=== PATIENT | male | born 1945 | race Caucasian/White ===

== ENCOUNTER → 2016-09-10 | Outpatient (REF) ==
[~2016-09-10] MED LIST: ASPIRIN 81M81 MG/TA2 PO; CELEBREX 200MG200 MG PO; CIALIS5 MG PO; DEPO-TESTOS200 MG/M1 IM; EFFEXOR-XR150 MG PO; FLOMAX 0.40.4 MG/CAP PO; MIRAPEX0.5 MG PO; NORCO 325 MG-101 TAB PO; PRILOSEC 20MG20 MG PO
[2016-09-10 14:19] LABS: PSA-TOTAL 1.81 ng/mL (0-4)
[2016-09-10 14:29] LABS: THYROID STIMULATING HORMONE 2.66 uIU/mL (0.465-4.680)
== END ==
LOC: ZLAB.WCH 10:16
PROVIDERS: Medical Genetics Clinical Genetics (M.D.)
DX: Z01.89 Encounter for other specified special examinations (principal)
CPT/HCPCS: G0103

== ENCOUNTER → 2016-12-22 | Outpatient (REF) | LOC: ZLAB.WCH 19:27 | DX: Z01.89 Encounter for other specified special examinations (principal) ==

== ENCOUNTER → 2018-03-17 | Outpatient (REF) | LOC: ZLAB.WCH 14:15 | DX: Z12.31 Encounter for screening mammogram for malignant neoplasm of breast (principal) ==

== ENCOUNTER → 2018-07-12 | Outpatient (REF) ==
[2018-07-12 17:28] LABS: THYROID STIMULATING HORMONE 3.57 uIU/mL (0.465-4.680)
[2018-07-12 17:37] LABS: PSA-TOTAL 2.17 ng/mL (0-4)
== END ==
LOC: ZLAB.WCH 16:05
PROVIDERS: Internal Medicine
DX: Z01.89 Encounter for other specified special examinations (principal)
CPT/HCPCS: G0103

== ENCOUNTER → 2018-10-03 | Outpatient (REF) | LOC: ZLAB.WCH 09:43 | DX: Z01.89 Encounter for other specified special examinations (principal) ==

== ENCOUNTER → 2018-10-12 | Outpatient (REF) | LOC: ZLAB.WCH 16:17 | DX: Z01.89 Encounter for other specified special examinations (principal) ==

== ENCOUNTER → 2018-10-14 | Outpatient (CLI) | payer MEDICARE, BC | LOC: COL.RAD 13:14 | DX: J90 Pleural effusion, not elsewhere classified (principal); J94.2 Hemothorax ==

== ENCOUNTER 2018-10-21 12:37 | Inpatient (IN) | payer MEDICARE, BC ==
[~2018-10-21] VITALS: Ht 188 cm; Wt 115.9 kg
[~2018-10-21 12:37] MED LIST changes: -00186-0370-20 IH; -LUMIGAN 5 ML5 M1 OP
[2018-10-21 14:12] LABS: ALBUMIN 3.6 gm/dL (3.5-5.0); BILIRUBIN,TOTAL 0.7 mg/dL (0.0-1.0); CALCIUM 8.6 mg/dL (8.4-10.2); CREATININE, serum 0.79 mg/dL (0.66-1.25); POTASSIUM 4.3 mmol/L (3.4-5.0); TOTAL PROTEIN 6.8 gm/dL (6.4-8.2)
[2018-10-21 14:16] LABS: COLLECTION METHOD CLEAN CATCH
[2018-10-21 14:24] LABS: MUCOUS Present /lpf; PH 6 (5-8); SQUAMOUS EPITHELIAL None Seen /hpf; URINE APPEARANCE Clear; URINE BACTERIA None Seen /hpf; URINE BILIRUBIN Negative (NEGATIVE); URINE BLOOD Negative (NEGATIVE); URINE COLOR Yellow; URINE GLUCOSE Negative (NEGATIVE); URINE KETONE Negative (NEGATIVE); URINE LEUKOCYTE ESTERASE Negative (NEGATIVE); URINE NITRATE Negative (NEGATIVE); URINE PROTEIN(semi-quant) Negative (NEGATIVE); URINE RBC None Seen /hpf
[2018-10-21] MEDS ORDERED: 00186-0370-20 IH (14:50)
[2018-10-21] MEDS ORDERED: LUMIGAN 5 ML5 M1 OP (14:51)
[2018-10-21 14:53] LABS: BASO % 0.5 % (0.0-2.0); EOS # 0.6 (0.0-0.7); EOS % 10.6 % (0-4.0); GRAN # 3.9 (1.4-6.5); GRAN % 69.5 % (42.2-75.2); HEMATOCRIT 41.4 % (42.0-52.0); HEMOGLOBIN 13.8 g/dl (13.5-18.0); LYMPH # 0.5 (1.2-3.4); LYMPH % 9.7 % (20.0-51.0); MEAN CELL VOLUME 93 fl (80.0-100.0); MEAN CORPUSCULAR HEMOGLOBIN 31 pg (27.0-31.0); MEAN CORPUSCULAR HGB CONC 33 g/dl (33.0-37.0); MEAN PLATELET VOLUME 8.6 fl (7.4-10.4); MONO # 0.5 (0.1-0.6); MONO % 9.2 % (1.7-9.3); PLATELET COUNT 227 K/mm3 (130-400); RED BLOOD COUNT 4.45 M/mm3 (4.20-5.60); REDCELL DISTRIBUTION WIDTH-CV 13.4 % (11.5-14.5)
--- NOTE | 2018-10-21 16:06 | NUR ---
Patient up to room 341 from ER by anni. Alert and oriented x 3. Patient oriented to room. IV fluids infusing via pump to left hand. Denies further needs at this time.
[2018-10-21 19:21] VITALS: BP 128/87; PULSE 104; TEMP 99.8
[2018-10-21 19:23] VITALS: BP 128/87; PULSE 104; TEMP 99.8
--- NOTE | 2018-10-21 19:38 | NUR ---
Reported off to night coordinator.
--- NOTE | 2018-10-21 20:20 | NUR ---
Shift assessment complete. Patient in bed, at bedside. Patient c/o pain only when coughing, declines pain medication. SCD's applied. Patient's brought in home CPAP, RT notified. Will continue to assess.
[2018-10-22] VITALS (148 sets, daily range): BP systolic 112–140; BP diastolic 60–90; PULSE 72–105; TEMP 97.5–98.9; O2SAT 84–98
--- NOTE | 2018-10-22 04:01 | NUR ---
Patient in bed, awake. Per RT, CPAP was off while patient was sleeping, resulting in 90% on RA. Patient stated he would put his CPAP back on. Will continue to monitor oxygen level. Consent for chest tube signed and on chart. Patient denies pain. Will continue to monitor.
--- NOTE | 2018-10-22 06:23 | NUR ---
Patient in bed, awake. O2 90%RA, placed on 2L. 93% on 2L. Denies pain. Will continue to monitor.
[2018-10-22 07:14] LABS: HEMATOCRIT 40.4 % (42.0-52.0); HEMOGLOBIN 13.2 g/dl (13.5-18.0); MEAN CELL VOLUME 94 fl (80.0-100.0); MEAN CORPUSCULAR HEMOGLOBIN 31 pg (27.0-31.0); MEAN CORPUSCULAR HGB CONC 33 g/dl (33.0-37.0); MEAN PLATELET VOLUME 8.3 fl (7.4-10.4); PLATELET COUNT 239 K/mm3 (130-400); RED BLOOD COUNT 4.29 M/mm3 (4.20-5.60); REDCELL DISTRIBUTION WIDTH-CV 13.4 % (11.5-14.5)
[2018-10-22 07:25] LABS: CALCIUM 8.4 mg/dL (8.4-10.2); CREATININE, serum 0.68 mg/dL (0.66-1.25); MAGNESIUM 2.2 mg/dL (1.6-2.3); POTASSIUM 4.2 mmol/L (3.4-5.0)
[2018-10-22 07:52] LABS: BAND 51 % (0-10); LYMPHOCYTE 2 % (20.0-51.0); NEUTROPHILS 45 % (42.0-75.2)
[2018-10-22 07:53] LABS: PLATELET ESTIMATE NORMAL (NORMAL)
--- NOTE | 2018-10-22 08:00 | NUR ---
Patient in bed resting. Alert and oriented x 3. Shift assesment complete. Airborn precautions followed. Denies pain at this time. On 3L O2 via NC. SCDs to BLE. Denies further needs at this time.
[2018-10-22 08:10] LABS: INR 1.1 (0.8-3.0); PROTHROMBIN TIME 12.2 SECONDS (9.7-12.8)
--- NOTE | 2018-10-22 11:03 | NUR ---
Patient down to OR by bed with Pk.
--- NOTE | 2018-10-22 13:23 | NUR ---
SW attempted to meet with patient but he was not in his room.
--- NOTE | 2018-10-22 15:16 | NUR ---
Report called to Marina in ICU
--- NOTE | 2018-10-22 15:30 | NUR ---
PATIENT ARRIVED TO ICU ROOM 3 VIA BED FROM PACU. HE IS AWAKE AND ALERT AT THIS TIME. HE WAS MOVED JULIA TO THE BED. 2 CHEST TUBES NOTED TO LEFT CHEST. HE WAS PLACED ON THE AUDITING CONTROL CLERK AND O2 SATS FOUND TO BE AROUND 85% ON 10L MASK. HE WAS PLACED ON AN OXYMASK AT 15L AND O2 SATS REMAINED LOW. DR. ASH NOTIFIED AND HE REQUESTED PATIENT BE PLACED ON BIPAP. CHEST TUBE ATRIUM WAS CHANGED DUE TO IT BEING KNOCKED OVER ON TRANSPORT.
[2018-10-22 16:59] LABS: ARTERIAL BLD GAS O2 SATURATION 98.1 % (92-100); ARTERIAL BLOOD GAS BASE EXCESS -1.9 (-2-2); ARTERIAL BLOOD GAS HCO3 23.6 meq/L (22-26); ARTERIAL BLOOD GAS PCO2 43.1 mmHg (35-45); ARTERIAL BLOOD GAS PO2 130.1 mmHg (80-100); ARTERIAL BLOOD GAS pH 7.36 (7.35-7.45)
--- NOTE | 2018-10-22 18:06 | NUR ---
PATIENT TAKEN OFF BIPAP AND PLACED ON 10 L OXYMASK
--- NOTE | 2018-10-22 19:20 | NUR ---
Bedside report received from ALLEN Gray. Chest Tube site assessed. Transfer of care at this time.
--- NOTE | 2018-10-22 19:34 | NUR ---
REPORT GIVEN TO ALLEN GONZALEZ.
--- NOTE | 2018-10-22 20:00 | NUR ---
Assessment complete at this time. Patient is resting in bed. Rates pain as 1/10 after getting dilauded. Assessment reveals coarse crackles in the left lung with diminished bases bilaterally. Chest tubes have thin red fluid draining. Dressing remains clean and dry. Patient placed on Bipap. No further needs. Will continue to monitor. Call light within reach.
[2018-10-23] VITALS (82 sets, daily range): BP systolic 110–126; BP diastolic 74–79; PULSE 70–86; TEMP 97.5–98.4; O2SAT 87–97
--- NOTE | 2018-10-23 | NUR ---
Assessment complete. Patient sleeping in bed, but easily awakens. Rates pain 1/10 again after receiving dilauded. Assessment reveals improvement in the left lung with fine crackles and diminished base. Right lung is clear with diminished base. Chest tubes remain patent and dressing is clean and dry. Patient has no further needs at this time. Will continue to monitor. Call light within reach.
--- NOTE | 2018-10-23 04:00 | NUR ---
Assessment complete at this time. Patient is resting in bed quietly listening to his audiobook. Patient has complained of pain rated 4/10 in his left side where the chest tubes are. Medication was provided. Assessment reveals coarse sounds in the left lung with the right clear. Vitals remain stable. No current needs. Will continue to monitor. Call light within reach.
[2018-10-23 05:45] LABS: HEMOGLOBIN 11.5 g/dl (13.5-18.0); MEAN CELL VOLUME 96 fl (80.0-100.0); MEAN CORPUSCULAR HEMOGLOBIN 31 pg (27.0-31.0); MEAN CORPUSCULAR HGB CONC 32 g/dl (33.0-37.0); MEAN PLATELET VOLUME 8.1 fl (7.4-10.4); PLATELET COUNT 230 K/mm3 (130-400); RED BLOOD COUNT 3.72 M/mm3 (4.20-5.60); REDCELL DISTRIBUTION WIDTH-CV 13.4 % (11.5-14.5)
[2018-10-23 05:51] LABS: HEMATOCRIT 35.7 % (42.0-52.0)
[2018-10-23 06:01] LABS: CALCIUM 7.8 mg/dL (8.4-10.2); CREATININE, serum 0.69 mg/dL (0.66-1.25); POTASSIUM 4.5 mmol/L (3.4-5.0)
[2018-10-23 06:19] LABS: C-REACTIVE PROTEIN 5.3 mg/dL (0.0-0.9)
[2018-10-23 06:23] LABS: ARTERIAL BLD GAS O2 SATURATION 97.1 % (92-100); ARTERIAL BLOOD GAS BASE EXCESS -0.5 (-2-2); ARTERIAL BLOOD GAS HCO3 24.9 meq/L (22-26); ARTERIAL BLOOD GAS PCO2 43.7 mmHg (35-45); ARTERIAL BLOOD GAS PO2 103.8 mmHg (80-100); ARTERIAL BLOOD GAS pH 7.37 (7.35-7.45)
--- NOTE | 2018-10-23 07:10 | NUR ---
Bedside report given to ALLEN Gray
--- NOTE | 2018-10-23 08:00 | NUR ---
INITIAL ASSESSMENT COMPLETED. PATIENT CURRENTLY ON BIPAP. TOLERATING WELL. HE STATES HIS PAIN IS STARTING TO INCREASE.
--- NOTE | 2018-10-23 10:24 | NUR ---
Patient was indisposed with a nurse.
--- NOTE | 2018-10-23 12:00 | NUR ---
PATIENT WAS ABLE TO GET UP TO A RECLINER. TOLERATED WELL. STATED HE HAD VERY MINIMAL PAIN AND IT FELT REALLY GOOD TO GET UP OUT OF THE BED. CHEST TUBE TO 20 CM OF SUCTION.
--- NOTE | 2018-10-23 15:20 | NUR ---
PATIENT ASSISTED WITH GETTING BACK TO BED. BIPAP PLACED AND PATIENT IS WANTING TO REST.
--- NOTE | 2018-10-23 19:18 | NUR ---
Bedside report received from ALLEN Gray. Chest Tube assessed. Transfer of care at this time.
--- NOTE | 2018-10-23 20:00 | NUR ---
Assessment complete. Patient is sitting up in bed awake watching tv. Patient rates pain a 1/10 in the left side that hurts when he coughs, but otherwise has no pain. Does not want any pain medications right now. Assessment reveals fine crackles and inspiratory wheezing in the left lung, right lung is clear. Chest tubes dressings remain clean and dry. Output from chest tubes has decreased but is still red in color. Patient has no other needs at this time. Will continue to monitor. Call light within reach.
[2018-10-24] VITALS (399 sets, daily range): BP systolic 108–132; BP diastolic 56–79; PULSE 59–85; TEMP 97.7–98.3; O2SAT 84–99
--- NOTE | 2018-10-24 | NUR ---
Assessment complete. Patient is sleeping at this time, but awakens easily to name. Patient is on BIPAP and is tolerating well. Patient rates his pain a 2/10 in the same area, still does not request any pain meds. Assessment reveals that wheezes have ceased and fine crackles remain in the left lung. Patient still has hypoactive bowel sounds and has not passed any gas. Patient has no further needs at this time. Will continue to monitor. Call light within reach.
--- NOTE | 2018-10-24 04:00 | NUR ---
Patient awake and playing on his tablet at this time. Assessment complete. Patient is now passing gas and has very active bowel sounds. Chest tubes remain patent and have red/bloody drainage. Patient rates pain as a 1/10 in the left side. He has no other needs now, will continue to monitor. Call light within reach.
--- NOTE | 2018-10-24 07:14 | NUR ---
Bedside report given to ALLEN Gray
[2018-10-24 07:22] LABS: BASO % 0.4 % (0.0-2.0); EOS # 0.4 (0.0-0.7); EOS % 4.5 % (0-4.0); GRAN # 6.1 (1.4-6.5); GRAN % 78.6 % (42.2-75.2); HEMOGLOBIN 10.4 g/dl (13.5-18.0); LYMPH # 0.8 (1.2-3.4); MEAN CELL VOLUME 97 fl (80.0-100.0); MEAN CORPUSCULAR HEMOGLOBIN 31 pg (27.0-31.0); MEAN CORPUSCULAR HGB CONC 32 g/dl (33.0-37.0); MEAN PLATELET VOLUME 8.2 fl (7.4-10.4); MONO # 0.5 (0.1-0.6); PLATELET COUNT 196 K/mm3 (130-400); RED BLOOD COUNT 3.35 M/mm3 (4.20-5.60); REDCELL DISTRIBUTION WIDTH-CV 13.6 % (11.5-14.5)
[2018-10-24 07:49] LABS: HEMATOCRIT 32.4 % (42.0-52.0)
[2018-10-24 07:53] LABS: BILIRUBIN,TOTAL 0.3 mg/dL (0.0-1.0); CALCIUM 7.9 mg/dL (8.4-10.2); CREATININE, serum 0.73 mg/dL (0.66-1.25); MAGNESIUM 2.6 mg/dL (1.6-2.3); PHOSPHOROUS 2.6 mg/dL (2.5-4.5); POTASSIUM 3.7 mmol/L (3.4-5.0); TOTAL PROTEIN 5.7 gm/dL (6.4-8.2)
--- NOTE | 2018-10-24 09:00 | NUR ---
PATIENT AMBULATED TO THE TOILET AND HAD A BOWEL MOVEMENT. CHEST TUBE DRESSING SOILED AND DRIPPING BLOOD ON THE FLOOR. DRESSING WAS CHANGED. PATIENT SITTING IN RECLINER AT THIS TIME. AT BEDSIDE. DENIES FURTHER NEEDS AT THIS TIME.
--- NOTE | 2018-10-24 09:00 | NUR ---
Chest tube placed to waterseal per Dr. Stinson orders.
--- NOTE | 2018-10-24 11:15 | NUR ---
Report called to ALLEN Michael on surgical. Patient will be taken by wheelchair to room 341. Plan of care discussed and all questions answered.
--- NOTE | 2018-10-24 12:19 | NUR ---
Pt arrived to surgical floor via wheelchair. just left. Pt to chair, brought lunch. Foam Chest tube dressing intact, water seal to 20mmHG, beginning of shift level marked by previous nurse. Pt to hi-flow O2 at 5L, See vitals.
--- NOTE | 2018-10-24 17:44 | NUR ---
Pt to chair in room
--- NOTE | 2018-10-24 19:08 | NUR ---
Chest tube dressing saturated, changed with xeroform and gauze and foam tape. Pt héctor well. Bedside report to ALLEN Mccormick. Pt settled into bed, water seal marked at 430 ml and dated.
--- NOTE | 2018-10-24 20:00 | NUR ---
PT RESTING IN BED. VERY PLEASANT AND COOPERATIVE. NO RESP DISTRESS. O2 41/2L NC. X2 LT CHEST TUBES TO WATER SEAL. SMALL AMTS OF RED DRAINAGE. CHEST TUBES SITE DAVID C&D. SEE MAR FOR ANY PAIN MEDS GIVEN. CONTINUED ISOLATION UNTIL TB TEST RESULTS. CALL LIGHT IN REACH. INDEPENDENT IN ROOM.
--- NOTE | 2018-10-24 22:30 | NUR ---
NOTIFIED RANDELL Brooks THAT THERE WAS ONLY ONE CHEST TUBE CLAMP AND CHECKLIST QUE REQUIRES TWO. SHE WILL FIND ANOTHER CLAMP TO BRING.
--- NOTE | 2018-10-25 02:53 | NUR ---
PT RESTING QUIETLY. NO RESP DISTRESS.
[2018-10-25 04:29] VITALS: BP 119/64; PULSE 71; TEMP 96.3
[2018-10-25 07:23] VITALS: BP 130/78; PULSE 78; TEMP 97
[2018-10-25 11:21] VITALS: BP 144/88; PULSE 80; TEMP 97.8
--- NOTE | 2018-10-25 14:30 | NUR ---
MD Shantell removed anterior chest tube. Remaining inserted tube redressed with petroleum gauze, gauze and tape. Chest tube connection taped with quick-release method.
--- NOTE | 2018-10-25 15:52 | NUR ---
SW met with patient to discuss discharge planning. Patient lives independently with his Shelby in [place]. Patients PCP is Dr Peter and he obtains his medications from [facility]. Patient reports he has a dpoa but not with him and he will have his bring it with him. PT has signed off on patient and OT is recommending home. SW does not anticipate any discharge needs but will continue to follow.
[2018-10-25 16:32] VITALS: BP 141/81; PULSE 79; TEMP 97.5
[2018-10-25 20:22] VITALS: BP 142/88; PULSE 77; TEMP 97.7
--- NOTE | 2018-10-25 21:00 | NUR ---
Patient rests in bed awake and alert. Watches TV. Denies pain. Chest tube left flank intact to waterseal. Has o2 on 3lpnc. Denies shortness of breath. Couphed up moderate amount dk red sputum. HS meds reviewed and given. Chest tube anterior dressing with moderate amount red drainage shawdowing/will monitor. SCD's applied at HS.
--- NOTE | 2018-10-25 22:30 | NUR ---
Notified RT that patient ready for Bipap to be applied. Patient drowsy. Denies further needs.
[2018-10-26] VITALS (7 sets, daily range): BP systolic 102–148; BP diastolic 63–82; PULSE 65–90; TEMP 97.1–98.3
--- NOTE | 2018-10-26 04:42 | NUR ---
Patient resting in bed with bipap on.
--- NOTE | 2018-10-26 06:00 | NUR ---
Patient reports he accidently knocked over waterseal chest tube canister. recycling crew supervisor Kristopher VILLA brought up new canister and filled to 2cm in B chamber and 20cm in A chamber. Reviewed changeing of canister with patient. Patient calm. Denies shortness of breath. States yesterday prior to this nurses arrival he had couphed hard and created some drainage under dressing. States ER nurse came up and "fixed it". Scant amount of light red drainage noted underneath sponge tape just under end of chest tube. Cleansed off. Kristopher VILLA and this nurse clamped end of chest tube and applied new waterseal canister/then unclamped. Secured where tubes meet with tape. Will monitor.
[2018-10-26 07:05] LABS: HEMATOCRIT 35.8 % (42.0-52.0); HEMOGLOBIN 11.5 g/dl (13.5-18.0); MEAN CELL VOLUME 96 fl (80.0-100.0); MEAN CORPUSCULAR HEMOGLOBIN 31 pg (27.0-31.0); MEAN CORPUSCULAR HGB CONC 32 g/dl (33.0-37.0); MEAN PLATELET VOLUME 8.8 fl (7.4-10.4); PLATELET COUNT 273 K/mm3 (130-400); RED BLOOD COUNT 3.75 M/mm3 (4.20-5.60); REDCELL DISTRIBUTION WIDTH-CV 13.5 % (11.5-14.5)
[2018-10-26 07:21] LABS: CALCIUM 8.6 mg/dL (8.4-10.2); CREATININE, serum 0.82 mg/dL (0.66-1.25); MAGNESIUM 2.4 mg/dL (1.6-2.3); POTASSIUM 3.7 mmol/L (3.4-5.0)
--- NOTE | 2018-10-26 08:25 | NUR ---
Patient in bed resting. Alert and oriented x3. Shift assessment complete. Anterior previous chest tube site with moderate amount of serosanguinous drainage present. Posterior chest tube to dependent drainage with small amount of red-tinged drainage present in canister. On 3L of O2 via NC. Patient denies pain at this time. Denies further needs at this time.
--- NOTE | 2018-10-26 10:22 | NUR ---
Patient ambulating in carr with , Steady gait.
[2018-10-26 10:26] LABS: BAND 5 % (0-10); EOSINOPHIL 4 % (0-4); LYMPHOCYTE 17 % (20.0-51.0); NEUTROPHILS 65 % (42.0-75.2); PLATELET ESTIMATE NORMAL (NORMAL)
--- NOTE | 2018-10-26 10:41 | NUR ---
Patient ambulated >150 feet with spouse
--- NOTE | 2018-10-26 14:30 | NUR ---
Patient states he accidentally knocked over chest tube container. Changed out container. Patient had 55ml of red tinged fluid present in containter.
--- NOTE | 2018-10-26 20:00 | NUR ---
Patient in bed, is alert and oriented x4. Has Left chest tube to waterseal, has tidaling with respirations and no air leak noted. Dressing changed to left upper abdomen, noted 2 quarter size red areas, placed telfa and paper tape to secure. Changed outer dressing to old chest tube site, left vaseline gauze in place, covered with gauze and microfoam tape, serosanguinous drainage noted. Replaced dressing around current left chest tube site and covered with microfoam tape. Patient reports area feels better since old plastic tape was removed. SL intact to right forearm, no redness or swelling. Oxygen at 1L/NC. On telemetry in SR. Denies need for pain meds at this time.
[2018-10-27 03:04] VITALS: BP 140/83; PULSE 68; TEMP 97
--- NOTE | 2018-10-27 06:00 | NUR ---
Has 72cc of pink drainage from left chest tube. Denies pain or concerns this AM. Chest tube remains to water seal.
[2018-10-27 06:09] LABS: HEMOGLOBIN 11.2 g/dl (13.5-18.0); MEAN CELL VOLUME 94 fl (80.0-100.0); MEAN CORPUSCULAR HEMOGLOBIN 30 pg (27.0-31.0); MEAN CORPUSCULAR HGB CONC 32 g/dl (33.0-37.0); MEAN PLATELET VOLUME 8.7 fl (7.4-10.4); PLATELET COUNT 264 K/mm3 (130-400); RED BLOOD COUNT 3.73 M/mm3 (4.20-5.60); REDCELL DISTRIBUTION WIDTH-CV 13.5 % (11.5-14.5)
[2018-10-27 06:11] LABS: CALCIUM 8.4 mg/dL (8.4-10.2); CREATININE, serum 0.73 mg/dL (0.66-1.25); POTASSIUM 3.3 mmol/L (3.4-5.0)
[2018-10-27 06:14] LABS: HEMATOCRIT 35.1 % (42.0-52.0)
[2018-10-27 08:25] LABS: BAND 4 % (0-10); EOSINOPHIL 12 % (0-4); LYMPHOCYTE 15 % (20.0-51.0); METAMYELOCYTE 1 % (0-0); NEUTROPHILS 65 % (42.0-75.2); PLATELET ESTIMATE NORMAL (NORMAL)
[2018-10-27 08:46] VITALS: BP 104/74; PULSE 93; TEMP 97.8
--- NOTE | 2018-10-27 09:19 | NUR ---
Patient resting in bed. Dr. Stinson rounded this am & chest tube was removed. Patient appears to have tolerated well & denies pain at this time. Gauze and tape dressing intact. Patient skin is very irritated from prior tape on chest. Patient had breakfast & tolerated well. He is currently doing breathing treatment with RT. Will continue to monitor.
--- NOTE | 2018-10-27 11:45 | NUR ---
Patient alerted staff that his back felt wet. On assessment, dressing was noted to be saturated. Dressing removed, and site wiped dry. 4x4 gauze and foam tape applied. Old dressing removed from blisters, cleansed, and optifoam applied to site. Will monitor.
[2018-10-27 11:57] VITALS: BP 113/67; PULSE 84; TEMP 98.1
[2018-10-27 15:23] VITALS: BP 112/64; PULSE 85; TEMP 97.5
--- NOTE | 2018-10-27 18:05 | NUR ---
Patient has been independent in room. Minimal needs today. He has denied pain. He completed a bedbath, he will be cleared to take a shower tmrw 24 hrs post chest tube removal. Prior chest tube sites dressing intact. Will report off to night nurse
[2018-10-27 19:38] VITALS: BP 112/61; PULSE 81; TEMP 98.7
--- NOTE | 2018-10-27 21:00 | NUR ---
Patient in bed, returned from walk with spouse. Dressing to left anterior chest dry/intact. Has an optifoam dressing to left upper abdomen, covering 2 old blister sites from the adhesive in tape. Lung diminished to left lower. Off oxygen and maintains SaO2's. Has productive cough of yellow sputum, at times is blood tinged. Denies pain.
--- NOTE | 2018-10-27 22:12 | NUR ---
PT PUT HIS CPAP MACHINE ON AFTER RT TXS.
[2018-10-27 23:27] VITALS: BP 107/75; PULSE 84; TEMP 98.3
--- NOTE | 2018-10-28 00:15 | NUR ---
Patient calls for assist, has leaking from his dressing on left chest. Serosanguinous fluid leaking from one of the old chest tube sites. Has xeroform over both holes, applied gauze and ABD with microfoam tape. Has noted skin irritation from tape on left chest. Has dressing over tape blisters on upper left abdomen. Patient will advise if dressing should start to leak again.
[2018-10-28 03:31] VITALS: BP 132/79; PULSE 80; TEMP 97.9
--- NOTE | 2018-10-28 03:35 | NUR ---
HELD RT TX, PT WAS NOT FEELING WELL AT THIS TIME.
--- NOTE | 2018-10-28 06:55 | NUR ---
appears to be sleeping, bedside shift report received from ALLEN Gama,
--- NOTE | 2018-10-28 07:15 | NUR ---
Report received from ALLEN Gama. Patient asleep at time of bedside report.
--- NOTE | 2018-10-28 08:06 | NUR ---
Patient noted to be ambulating independently out of the bathroom when this nurse entered the room. Gait steady. Patient states sleeping pretty well throughout the night and denies pain at this time. Dressing to left chest noted to be clean, dry, and intact. Optifoam covering blisters from previous tape dressing. Noted to be clean, dry, and intact as well. No edema noted to extremities. Patient ordering breakfast. Will monitor.
[2018-10-28 08:37] VITALS: BP 113/74; PULSE 87; TEMP 99.4
--- NOTE | 2018-10-28 11:32 | NUR ---
[employer] frequency verified with patient's spouse. She stated he takes this at HS only. Patient denies any pain or needs at this time. Dressing remains intact. No drainage noted.
--- NOTE | 2018-10-28 11:54 | NUR ---
Patient denies pain. Currently eating lunch with at bedside. Dressing remains intact with no drainage. Melanie, CARPET FINISHING SUPERVISOR, reminded and asked about discharge orders. She stated it would be after lunch. Patient notified. No further needs at this time.
[2018-10-28 12:21] VITALS: BP 91/59; PULSE 81; TEMP 97.5
--- NOTE | 2018-10-28 13:54 | NUR ---
SW met with patient and to present IM and verbally discuss the contents. patient was agreeable and signed the form. Copy provided and original placed on chart. Patient dc home today with spouse support.
--- NOTE | 2018-10-28 14:42 | NUR ---
PT DRESSED AND READY TO GO HOME, BREATHING TX NOT GIVEN.
--- NOTE | 2018-10-28 15:08 | NUR ---
Patient ready for discharge. Discharge instructions, home medications, dressing orders, and follow-up appointments discussed with patient and spouse. Dressing supplies sent home with patient. No questions or concerns expressed. Patient ambulated with staff to personal vehicle.
== END 2018-10-28 15:00 | disposition home or self-care (01) | DRG 163 ==
LOC: COL.ER 12:37 → SURG 15:22 → ICU 10-22 14:59 → SURG 10-24 11:40
PROVIDERS: Emergency Medicine; Family Medicine; Internal Medicine Critical Care Medicine; Physician Assistant; Surgery; ADMIT Internal Medicine
PROC: 0BCJ4ZZ Extirpation of Matter from Left Lower Lung Lobe, Percutaneous Endoscopic Approach (ICD-10-PCS; principal; 2018-10-22 10:30)
DX: J90 Pleural effusion, not elsewhere classified (principal); J96.01 Acute respiratory failure with hypoxia; Z87.891 Personal history of nicotine dependence; K21.9 Gastro-esophageal reflux disease without esophagitis; H40.9 Unspecified glaucoma; Z96.651 Presence of right artificial knee joint; Z88.2 Allergy status to sulfonamides; E87.6 Hypokalemia; N40.0 Benign prostatic hyperplasia without lower urinary tract symptoms; I51.7 Cardiomegaly
CPT/HCPCS: 99222-AI; 99231-AI; 99232-AI; 99233-AI; 99239; A4216; A7041; A9284; J0330; J0692; J1100; J1170; J1720; J2405; J2704; J3010; J3370; J7030; J7050; J7120; J7512; Q9967

== ENCOUNTER → 2018-10-21 | Outpatient (REF) ==
[~2018-10-21] MED LIST changes: +00186-0370-20 IH; +LUMIGAN 5 ML5 M1 OP
== END ==
LOC: ZLAB.WCH 08:36
DX: Z01.89 Encounter for other specified special examinations (principal)

== ENCOUNTER → 2018-11-01 | Outpatient (REF) ==
[~2018-11-01] MED LIST changes: +00186-0370-20 IH; +LUMIGAN 5 ML5 M1 OP
== END ==
LOC: ZLAB.WCH 16:22
DX: Z01.89 Encounter for other specified special examinations (principal)

== ENCOUNTER → 2018-11-29 | Outpatient (REF) | LOC: ZLAB.WCH 15:26 | DX: Z01.89 Encounter for other specified special examinations (principal) ==

== ENCOUNTER → 2019-02-14 | Outpatient (CLI) | payer MEDICARE, BC | LOC: COL.PUL 10:25 | DX: R06.02 Shortness of breath (principal); Z87.891 Personal history of nicotine dependence ==

== ENCOUNTER → 2019-05-10 | Outpatient (CLI) | payer MEDICARE, BC | LOC: COL.PUL 10:00 | DX: R06.02 Shortness of breath (principal) | CPT/HCPCS: J7674 ==